=== PATIENT | female | born 1970 | race Caucasian/White ===

== ENCOUNTER 2019-01-26 07:30 | Outpatient (CLI) | payer BC ==
--- NOTE | 2019-01-26 08:33 | CT ---
CT Abdomen Pelvis WO Con History: Abdominal pain. Right lower quadrant abscess Comparison: None. Findings: Lung bases are clear. No pericardial effusion. No nephroureterolithiasis or hydroureteronep hrosis. No secondary evidence of a recently passed stone. No dilated loops of large or small bowel. Within the fascia of the right oblique muscles is a collect ion of fluid measuring 6.5 x 4.3 x 8.9 cm likely correspond to the abscess. No acute osseous abnormality. There is advanced degenerative changes L5/S1. Noncontrast evaluation of the liver, spleen, and pancreas are unremarkable. Reactive right superficia l inguinal lymph nodes. Impression: Incompletely evaluated without intravenous contrast soft tissue mass on the right oblique musculature abutting the anterior right pelvic crest. With a prior history of abscess, this may be reaccumulation of phlegmonous material.
== END 2019-01-26 07:31 | disposition home or self-care (01) ==
LOC: BICCT 07:30
PROVIDERS: ATTEND Nurse Practitioner Family
DX: R10.9 Unspecified abdominal pain (principal); R93.7 Abnormal findings on diagnostic imaging of other parts of musculoskeletal system
CPT/HCPCS: 74176

== ENCOUNTER 2019-02-18 19:07 | Inpatient (IN) | payer BC ==
[~2019-02-18 19:07] MED LIST: ISOVUE-370 76%-LOCM 1 ML ONE
[2019-02-18 20:04] LABS: #Basophils 0.1 thou/uL (0.0-0.2); #Eosinphils 0.2 thou/uL (0.0-0.7); #Lymphocytes 2.8 thou/uL (1.20-3.40); #Neutrophils 8.7 thou/uL (1.40-6.50); %Basophils 0.9 % (0.0-1.0); %Eosinophils 1.6 % (0.0-10.0); %Lymphocytes 21.7 % (21.0-51.0); %Monocytes 7.7 % (0.0-10.0); %Neutrophils 68.2 % (42.0-75.0); Hemoglobin 12.3 g/dL (12.0-16.0); Mean Corpuscular HGB CONC 33.7 g/dL (32.0-36.0); Mean Corpuscular Hemoglobin 30.3 pg (27.0-31.0); Mean Platelet Volume 6.5 fL (7.4-10.4); Platelet Count 385 thou/uL (130-400); Red Blood Cell (RBC) Count 4.04 mill/uL (4.20-5.40); White Blood Cell (WBC) Count 12.7 thou/uL (4.8-10.8)
[2019-02-18 20:14] LABS: BHCG - Serum Negative (NEGATIVE); Pregs Control Background? CLEAR/WHITE (CLR/WHITE); Pregs Control Bar Appear? YES (CONTROL BAR)
[2019-02-18 20:24] LABS: ALT (SGPT) 10 U/L (8-55); AST (SGOT) 18 U/L (5-34); Albumin 4.3 g/dL (3.5-5.0); Alkaline Phosphatase 104 U/L (40-150); Anion Gap 11 mmol/L (10-20); BUN (Urea Nitrogen) 19 mg/dL (7.0-18.7); Bilirubin, Total 0.4 mg/dL (0.2-1.2); Calc. Creatinine Clearance 0 mL/min (70-130); Calcium 9.9 mg/dL (7.8-10.44); Carbon Dioxide 28 mmol/L (22-29); Chloride 101 mmol/L (98-107); Estimated GFR-MDRD 78; Globulin 3.9 g/dL (2.4-3.5); Glucose 89 mg/dL (70-105); Potassium 4.4 mmol/L (3.5-5.1); Protein, Total 8.2 g/dL (6.0-8.3); Sodium 136 mmol/L (136-145)
--- NOTE | 2019-02-18 21:04 | CT ---
EXAM: ABDOMEN CT WITH CONTRAST PELVIC CT WITH CONTRAST 02/18/19 HISTORY: Past medical history of abscess. The patient has been given antibiotics and medication. Abscess has b een drained but continues to recur. COMPARISON: 01/26/19. FINDINGS: ABDOMEN CT: Dependent atelectatic changes. Normal heart size. No significant pericardial fluid. The visualized ao rta has a normal caliber. Unremarkable gallbladder. Portal vein is patent. Liver, spleen, pancreas, and adrenal glands have placido ropriate attenuation and enhancement. No gastrohepatic, retrocrural, or periportal lymphadenopathy. Symmetric enhancement of the kidneys. Bilaterally, no obstructive uropathy. No mesenteric mass, lymphadenopathy, free air or free fluid. Limited evaluation of the alimentary canal by the lack of oral contrast. No evidence of bowel obstruc tion. Ileocecal junction is unremarkable. Appendix is suggested in the right lower quadrant and hill l in caliber. Fecal material in a nondistended, nondilated colon. CT PELVIS: Uterus is unremarkable. Hypodensity in the left adnexa measuring 2.8 x 2.6 cm with attenuation coeffi cient of 20 Hounsfield units suggesting a complex left ovarian cyst. Right adnexa is unremarkable. In the right hemipelvis, there appears to be a tubular structure that is fluid filled with a layering h yperdensity. This may represent a segment of bowel. However, a contained infected fluid collection ca nnot be entirely excluded. Better interrogation with a repeat CT with oral and IV contrast is recomme nded. This areas of dilatation and hyperdensity is not appreciated on the previous CT. Urinary bladder is unremarkable. No pelvic mass, lymphadenopathy, free air or free fluid. Mildly enla rged right inguinal lymph node, likely reactive measuring 1.9 x 0.9 cm. There is induration of the anterior right lower quadrant subcutaneous fat, extending into the right i nguinal region. There is a complex, multiloculated hypodense lesion with peripheral enhancement. This lesion measures 8.2 cm mediolateral x 2 cm anterior posterior x 7.8 cm craniocaudal. This collection has increased in size when compared to the previous examination. There are no lytic or blastic lesions in the osseous structures. IMPRESSION: 1. Redemonstration of an infected fluid collection in the anterior right subcutaneous fat/pelvic subcutaneous fat. This abscess appears to be external to the peritoneal cavity. Abscess has increase d when compared to the previous exam. 2. Reactive right inguinal lymph nodes. 3. Left ovarian cyst, complex. 4. Mixed attenuation collection in the right lower quadrant with a layering hyperdensity which m ay represent contrast or calcification. Etiology is uncertain. Focal dilatation of bowel loops versus an inflammatory collection are differential considerations. Better interrogation with a repeat CT wi th IV and oral contrast is recommended. POS: [facility]
[2019-02-18] MEDS ORDERED: Piperacillin/Tazobactam 3.375 GM VIAL ONE (21:33)
[2019-02-18] MEDS ORDERED: Vancomycin HCl 1 GM in Premix Bag 1 BAG IVPB SCH (23:00)
[2019-02-18] MEDS: Dextrose 5 % And 0.9 % NaCl 1,000 ML IV SCH (23:29)
[2019-02-18] MEDS: Acetaminophen/Codeine 30-300mg Tablet PO PRN (23:37)
[2019-02-19 00:42] VITALS: BMI 25.3
[2019-02-19] MEDS: Piperacillin/Tazobactam 3.375 GM in Sodium Chloride 0.9% 100 ML IVPB SCH ×3 (02:58→23:21)
[2019-02-19 07:43] LABS: INR-International Normal Ratio 1.1; Prothrombin Time 13.8 SEC (12.0-14.7)
[2019-02-19 07:44] LABS: PTT 41.3 SEC (22.9-36.1)
[2019-02-19] MEDS: Dextrose 5 % And 0.9 % NaCl 1,000 ML IV SCH (09:34)
[2019-02-19] MEDS: Acetaminophen/Codeine 30-300mg Tablet PO PRN ×2 (12:34→18:23)
[2019-02-19] MEDS ORDERED: Sodium Bicarbonate 2.5 MEQ/5 ML VIAL ONE (16:00)
[2019-02-19] MEDS ORDERED: Midazolam HCl 2 mg/2 ml Vial ONE (16:00)
[2019-02-19] MEDS ORDERED: Fentanyl 100 MCG/2 ML VIAL ONE (16:00)
--- NOTE | 2019-02-19 17:14 | CT ---
PROCEDURE: CT guided drainage of abscess collection anterior abdominal wall right lower quadrant. INDICATIONS: Fluid dense collection in the anterior abdominal wall right lower quadrant just anterior and superior to the iliac crest has been previously described on CT. CT drainage is requested. FINDINGS: A 6 Telugu all-purpose drainage catheter was placed into this fluid collection under CT guidance. The pigtail is positioned within the mid portion of this fluid collection. 38 mL of purulent fluid is as pirated. A sample is sent to the laboratory for culture and sensitivities. Postprocedure CT showed ad equate position of the pigtail catheter within the collection. PROCEDURE NOTE: CT was performed. Entry site was identified lateral right lower quadrant. overlying skin was prepped and draped in the sterile manner. Local anesthesia was administered with lidocaine and bicarb. Small skin incision made with scalpel. An all-purpose 6 Telugu drainage catheter with trocar in place was i ntroduced into this collection under CT guidance. Pigtail was positioned within the mid portion of th e fluid collection. The trocar was removed and pigtail was formed. A syringe is attached. 38 mL of pu rulent fluid is aspirated. The catheter is flushed with 10 mL of sterile saline which is then aspirat ed. Catheter is secured into place with sutures and a sterile dressing. The catheter is attached to g ravity drainage. Instruction is given to flush and aspirate the tube every six hours to maintain evans ncy. Patient tolerated the procedure well with no problems or complications. POS: [facility]
[2019-02-19] MEDS ORDERED: Acetaminophen/Codeine 30-300mg Tablet PO PRN (18:18)
[2019-02-19 18:29] LABS: RBC Count-Automated (BF) 64113 /cumm; WBC/Nucleated-Auto (BF) 30454 uL
[2019-02-19 18:30] LABS: BF Color Yellow; Body Fluid Source Abscess Fluid; Clarity Cloudy/Turbid (Clear); Tube # EDTA
[2019-02-19 18:34] LABS: BF Segmented Neutrophils 96 %; Lymphocytes 4 %
[2019-02-19] MEDS: Vancomycin HCl 1 GM in Premix Bag 1 BAG IVPB SCH (20:11)
--- NOTE | 2019-02-20 01:32 | HP ---
CHIEF COMPLAINT: Abdominal pain. HISTORY OF PRESENT ILLNESS: Ms. Huff is a 48-year-old woman with a history of multiple abdominal wall abscesses over the past 2 months. She denies any injury or wound to her abdominal area. She states that she developed pain, redness and swelling in the right lower quadrant and went to her local ER 2 months ago. She was found to have an abscess just above the anterior rectus sheath on the right, which underwent incision and drainage and then resolved and healed. At the time of her initial evaluation, she had a CT which also showed some possible fluid density in the oblique muscles, but this was not drained or opened at that time. She was treated with antibiotics, but developed worsening swelling in the right lower quadrant and underwent incision and drainage at the surgical clinic at [facility] in [place]. She states that they made a small incision overlying her old appendectomy scar and went down as far as the muscle and found that the abscess was deep to this. At that point, they decided to aspirate it rather than open it. I vianey off a fair amount of fluid and then placed her on antibiotics. She continued to have some pain and swelling, so she had a 2nd CT at [facility] last month. At that point, she was found to have a small abscess in the right lower quadrant extending down toward the groin, but it did appear extraperitoneal. No drainage was performed at that time, but she was treated with antibiotics IV and then sent home on oral antibiotics. She has been on clindamycin for some time now, but noticed that she was having increasing pain, swelling, and redness in her right groin area and right lower abdomen, so she came back to the emergency room and a repeat CT showed that the fluid collection in the right lower quadrant and groin had increased in size. She was admitted for IV antibiotics and planned percutaneous drainage. PAST MEDICAL HISTORY: None. PAST SURGICAL HISTORY: Appendectomy, tubal ligation and 3 C-sections. SOCIAL HISTORY: The patient does not smoke, drink, or use illicit drugs. She is here with her who is supportive. ALLERGIES: SHE REPORTS AN ALLERGY TO [facility] AND IS ONLY TAKING CLINDAMYCIN CURRENTLY. REVIEW OF SYSTEMS: Ten system review of systems is negative except per HPI. She denies any fevers or chills or changes in her bowel habits. PHYSICAL EXAMINATION: VITAL SIGNS: The patient was afebrile with normal vital signs. GENERAL: Reveals a healthy-appearing woman, in no acute distress. She is not flushed or toxic in appearance. She is not jaundiced or icteric. HEENT: Unremarkable. NECK: Supple without lymphadenopathy or thyroid nodules. HEART: Regular in its rate and rhythm without murmurs, rubs, or gallops. LUNGS: Clear to auscultation bilaterally. ABDOMEN: Soft and nondistended. She has firmness and tenderness over the right lower quadrant especially anterior to the anterior superior iliac spine and extending down toward the groin. No fluctuance. Minimal erythema. EXTREMITIES: Warm and well perfused without edema. NEUROLOGIC: No focal deficits. PSYCHIATRIC: Alert, oriented and appropriate. IMAGING: CT images were reviewed and I agree with the written report. The patient has a fluid collection, which appears to be mostly in the subcutaneous tissues in the right lower quadrant and groin. I do not see any connection to intraabdominal organs. She does have a complex left ovarian cyst and a tubular structure that may be bowel although a dilated fallopian tube cannot be entirely excluded. ASSESSMENT: Abdominal wall abscess, deep partially submuscular and has failed surgical drainage. I am going to ask Interventional Radiology to place a percutaneous drain, which could be left in for some period of time. I think she likely has a very indolent infection, which has been partially suppressed by the clindamycin, but I will add Zosyn for better gram-negative coverage. We will await culture results to further guide therapy, but she can likely be discharged home on empiric clindamycin, levofloxacin once she is comfortable with drain management. She is to follow up in the clinic in about a week and we will plan on repeat CT scanning before removing the drain. If at any point, she deteriorates and starts to have worsening pain, fever, redness or drainage then she should return immediately for re-evaluation. Job ID: [id number]
[2019-02-20] MEDS: Acetaminophen/Codeine 30-300mg Tablet PO PRN ×3 (04:11→20:02)
[2019-02-20] MEDS: Piperacillin/Tazobactam 3.375 GM in Sodium Chloride 0.9% 100 ML IVPB SCH ×4 (05:29→23:01)
[2019-02-20] MEDS: Saccharomyces boulardii 250 MG CAP PO SCH (09:20)
--- NOTE | 2019-02-20 14:13 | PRG ---
DATE OF SERVICE: 02/20/2019 SUBJECTIVE: The patient says she feels pretty good. No pain. No nausea or vomiting. She is tolerating a regular diet. OBJECTIVE: VITAL SIGNS: Temperature is 98.1, pulse 71, blood pressure 109/64. GENERAL: She looks good. She has had 30 mL out the percutaneous drain. LABORATORY DATA: Her white count was elevated 12.7 two days ago. ASSESSMENT: Abdominal wall fluid collection, not growing anything on cultures. PLAN: Continue antibiotics. Repeat CBC. Job ID: [id number]
[2019-02-20] MEDS: Vancomycin HCl 1 GM in Premix Bag 1 BAG IVPB SCH (19:57)
[2019-02-21 05:19] LABS: #Basophils 0.1 thou/uL (0.0-0.2); #Eosinphils 0.3 thou/uL (0.0-0.7); #Lymphocytes 2.7 thou/uL (1.20-3.40); #Monocytes 0.9 thou/uL (0.11-0.59); #Neutrophils 6.4 thou/uL (1.40-6.50); %Basophils 0.8 % (0.0-1.0); %Eosinophils 3.1 % (0.0-10.0); %Lymphocytes 25.6 % (21.0-51.0); %Monocytes 8.7 % (0.0-10.0); %Neutrophils 61.9 % (42.0-75.0); Hemoglobin 11.7 g/dL (12.0-16.0); Mean Corpuscular HGB CONC 34.1 g/dL (32.0-36.0); Mean Corpuscular Hemoglobin 30.7 pg (27.0-31.0); Mean Platelet Volume 6.5 fL (7.4-10.4); Platelet Count 377 thou/uL (130-400); Red Blood Cell (RBC) Count 3.81 mill/uL (4.20-5.40); White Blood Cell (WBC) Count 10.4 thou/uL (4.8-10.8)
[2019-02-21] MEDS: Piperacillin/Tazobactam 3.375 GM in Sodium Chloride 0.9% 100 ML IVPB SCH ×2 (05:31→12:10)
[2019-02-21] MEDS: Acetaminophen/Codeine 30-300mg Tablet PO PRN ×2 (05:35→12:12)
[2019-02-21] MEDS: Saccharomyces boulardii 250 MG CAP PO SCH (08:48)
[2019-02-21 15:18] VITALS: BP 112/62; TEMP 98.3
--- NOTE | 2019-02-22 10:56 | DIS ---
DATE OF ADMISSION: 02/18/2019 DATE OF DISCHARGE: 02/21/2019 DISCHARGE DIAGNOSIS: Recurrent abdominal wall abscess. PROCEDURE DURING ADMISSION: Percutaneous drainage. HOSPITAL COURSE: The patient was admitted. She underwent percutaneous drainage in the Radiology Suite. Cultures never grew anything out, although she seemed to respond to vancomycin and Zosyn. She now has less than 30 mL per 24 hours out. The lesion is much smaller. Her white count is down to normal. She is discharged home on clindamycin and doxycycline as well as [place]. She and her feel comfortable flushing the drain. We are going to continue drain care. She will be discharged home and will follow up with Dr. Jacome in 3 days. Job ID: [id number]
== END 2019-02-21 15:20 | disposition home or self-care (01) | DRG 603 ==
LOC: ERS 19:07 → SURG A 21:32
PROVIDERS: ADMIT Surgery; ATTEND Surgery
PROC: 0W9F3ZZ Drainage of Abdominal Wall, Percutaneous Approach (ICD-10-PCS; principal; 2019-02-21)
DX: L02.211 Cutaneous abscess of abdominal wall (principal); Z98.51 Tubal ligation status; Z90.49 Acquired absence of other specified parts of digestive tract; Z88.1 Allergy status to other antibiotic agents; Z88.2 Allergy status to sulfonamides
CPT/HCPCS: 36415; 49020; 74177; 77002; 80053; 84703; 85025; 85060; 85610; 85730; 87070; 87205; 89051; 96365; C1729; J2250; J2543; J3010; J3370; J3490; Q9966

== ENCOUNTER 2019-03-01 13:26 | Outpatient (CLI) | payer BC ==
--- NOTE | 2019-03-01 14:25 | CT ---
CT ABDOMEN AND PELVIS WITH CONTRAST: HISTORY: Abscess. COMPARISON: CT 02/18/2019. FINDINGS: The lung bases are clear. No pericardial effusion. The percutaneous drainage catheter rests at the craniad aspect of the collection which is markedly de creased in size. There continues to be small volume fluid and gas within the abscess along the right oblique muscle fascia. The spleen, liver, gallbladder, and pancreas are unremarkable. The aortoiliac contour is normal. No reactive intraperitoneal fluid. Moderate degenerative disk space disease at L5-S1. IMPRESSION: Size decreased gas and fluid containing collection along the right anterior abdominal wall at the obl ique fascia. POS: [facility]
== END 2019-03-01 13:27 | disposition home or self-care (01) ==
LOC: BICCT 13:26
PROVIDERS: ATTEND Surgery
DX: L02.211 Cutaneous abscess of abdominal wall (principal); R93.3 Abnormal findings on diagnostic imaging of other parts of digestive tract
CPT/HCPCS: 74177; Q9966

== ENCOUNTER 2019-04-13 09:33 | Inpatient (IN) | payer BC ==
[2019-04-13 10:21] LABS: #Basophils 0.1 thou/uL (0.0-0.2); #Eosinphils 0.2 thou/uL (0.0-0.7); #Lymphocytes 2.8 thou/uL (1.20-3.40); #Monocytes 0.7 thou/uL (0.11-0.59); #Neutrophils 4.6 thou/uL (1.40-6.50); %Eosinophils 2.6 % (0.0-10.0); %Lymphocytes 33.5 % (21.0-51.0); %Monocytes 8.1 % (0.0-10.0); %Neutrophils 54.8 % (42.0-75.0); Hemoglobin 14.4 g/dL (12.0-16.0); Mean Corpuscular HGB CONC 33.7 g/dL (32.0-36.0); Mean Corpuscular Hemoglobin 29.6 pg (27.0-31.0); Mean Corpuscular Volume 87.8 fL (78.0-98.0); Mean Platelet Volume 6.5 fL (7.4-10.4); Platelet Count 335 thou/uL (130-400); RBC Distribution Width 13.4 % (11.5-14.5); Red Blood Cell (RBC) Count 4.87 mill/uL (4.20-5.40); White Blood Cell (WBC) Count 8.4 thou/uL (4.8-10.8)
[2019-04-13 10:34] LABS: Pregnancy Test - Urine (BHCG) Negative (Negative); Pregu Control Background? CLEAR/WHITE (CLR/WHITE); Pregu Control Bar Appear? YES (CONTROL BAR); Specific Gravity 1.007 (1.002-1.036)
[2019-04-13 10:40] LABS: Bilirubin Negative (Negative); Blood, Urine Negative (Negative); Clarity Clear (Clear); Glucose, Urine (Dipstick) Normal (Negative); Leukocyte Negative Leu/uL (Negative); Nitrite Negative (Negative); Protein, Urine (Dipstick) Negative (Neg-Trace); Urobilinogen Normal mg/dL (Less than 2)
[2019-04-13 10:55] LABS: ALT (SGPT) 12 U/L (8-55); AST (SGOT) 19 U/L (5-34); Albumin 4.8 g/dL (3.5-5.0); Alkaline Phosphatase 125 U/L (40-110); Anion Gap 14 mmol/L (10-20); BUN (Urea Nitrogen) 12 mg/dL (7.0-18.7); Bilirubin, Total 0.6 mg/dL (0.2-1.2); Calc. Creatinine Clearance 0 mL/min (70-130); Calcium 10.2 mg/dL (7.8-10.44); Carbon Dioxide 27 mmol/L (22-29); Chloride 102 mmol/L (98-107); Estimated GFR-MDRD 77; Globulin 3.6 g/dL (2.4-3.5); Glucose 79 mg/dL (70-105); Lipase 23 U/L (8-78); Potassium 3.8 mmol/L (3.5-5.1); Protein, Total 8.4 g/dL (6.0-8.3); Sodium 139 mmol/L (136-145)
[2019-04-13] MEDS ORDERED: ISOVUE-370 76%-LOCM 1 ML ONE (12:00)
[2019-04-13] MEDS ORDERED: Iopamidol 370 76% 50 ML VIAL FS ONE (12:00)
--- NOTE | 2019-04-13 12:47 | CT ---
CT Abdomen Pelvis W Con HISTORY: Right lower quadrant pain. Patient has had an abscess that is been previously drained but sy mptoms have gotten worse over the past week. COMPARISON: 03/01/2019 CT examination. FINDINGS: The lung bases are clear of any infiltrative process. The liver, spleen, pancreas and gallbladder regions all appear unremarkable. Right and left adrenal glands and right and left kidneys are normal no free fluid seen within the abd omen. No significant periaortic or mesenteric adenopathy. CT of pelvis performed with contrast enhancement: There is no evidence of adenopathy, mass or free fl uid. There has been reaccumulation of the fluid collection seen along the right lateral wall oblique muscu lature. The fluid density collection extends into the region of the right rectus muscle is somewhat crescentic in shape measuring approximately 19 mm in thickness. IMPRESSION: Reaccumulation of the right-sided superficial fluid collection as discussed above.
[2019-04-13] MEDS ORDERED: Dexamethasone 20 MG/5 ML VIAL ONE (13:15)
[2019-04-13] MEDS ORDERED: Ondansetron PF 4 MG/2 ML Vial ONE (13:15)
[2019-04-13] MEDS ORDERED: PROPOFOL 200 MG/20 ML VIAL ONE (13:15)
[2019-04-13] MEDS ORDERED: Lidocaine 1% PF 5 ML VIAL ONE (13:15)
[2019-04-13] MEDS ORDERED: Cefepime 2 GM VIAL ONE (13:16)
[2019-04-13] MEDS ORDERED: Morphine 4 MG/ML VIAL ONE (16:19)
[2019-04-13] MEDS ORDERED: Famotidine/PF 20 mg/2ml Vial ONE (18:08)
[2019-04-13] MEDS ORDERED: Bupivacaine HCl 0.25%/Epi 0.0005/PF 10 ML VIAL FS ONE ×2 (19:11)
[2019-04-13] MEDS ORDERED: Fentanyl 100 MCG/2 ML VIAL ONE ×2 (20:00→21:31)
[2019-04-13] MEDS ORDERED: Promethazine HCl 25 MG/ML VIAL SLOW IVP PRN (21:21)
[2019-04-13] MEDS ORDERED: Ondansetron HCl/PF 4 MG/2 ML Vial IVP PRN (21:21)
[2019-04-13] MEDS ORDERED: PACU-Morphine 4MG/ML VIAL SLOW IVP PRN (21:21)
[2019-04-13] MEDS ORDERED: Promethazine HCl 25 MG/ML VIAL IM PRN (21:21)
[2019-04-13] MEDS ORDERED: Ketorolac Tromethamine 30 MG/ML VIAL IVP PRN (21:21)
[2019-04-13] MEDS ORDERED: HYDROmorphone 2 MG/ML VIAL SLOW IVP PRN (21:21)
[2019-04-13] MEDS ORDERED: Morphine Sulfate 2 MG/ML SYRINGE SLOW IVP PRN (21:21)
[2019-04-13] MEDS ORDERED: Ibuprofen 200 MG TAB PO PRN ×2 (22:19→22:33)
[2019-04-13] MEDS ORDERED: Acetaminophen 325 MG TAB PO PRN ×2 (22:20→22:35)
[2019-04-13] MEDS ORDERED: HYDROcodone/Acetaminophen 5/325 mg Tablet PO PRN (22:20)
[2019-04-13] MEDS ORDERED: Morphine 2 MG/ML SYRINGE SLOW IVP PRN (22:23)
[2019-04-13 22:32] VITALS: BMI 25.4
[2019-04-13] MEDS: HYDROcodone/Acetaminophen 5/325 mg Tablet PO PRN (22:56)
[2019-04-13] MEDS: Ibuprofen 200 MG TAB PO PRN (22:56)
[2019-04-14] MEDS: Cefepime 2 GM in Sodium Chloride 0.9% 100 ML IVPB SCH ×2 (00:26→12:20)
[2019-04-14] MEDS: Vancomycin HCl 1.25 GM in Sodium Chloride 0.9% 250 ML 250 ML IVPB SCH ×2 (03:52→15:10)
[2019-04-14] MEDS: Sodium Chloride 0.9% 1,000 ML IV SCH ×3 (03:53→20:05)
[2019-04-14] MEDS: HYDROcodone/Acetaminophen 5/325 mg Tablet PO PRN ×4 (03:54→21:34)
[2019-04-14] MEDS ORDERED: Lidocaine 4% Topical Sol 50 ML BOT TOP PRN (09:25)
[2019-04-14] MEDS: Morphine 4 MG/ML VIAL SLOW IVP PRN (13:41)
[2019-04-14] MEDS: Ibuprofen 200 MG TAB PO PRN (17:24)
[2019-04-14] MEDS ORDERED: FLU VACC QS2019-20(6MOS UP)/PF 60 MCG/0.5 ML SYRINGE IM ONE (21:00)
--- NOTE | 2019-04-14 22:45 | PDOC.GSPN ---
Surgery Progress Note: Subj - Subjective Narrative: Patient seen with wound care team today. The patient states that her pain is tolerable with pain medication. She is otherwise doing well. The packing was removed and the cavity appeared clean. Cultures and pathology are still pending. 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 The wound appeared clean. A VAC dressing was placed. Home VAC has been ordered. Surgery Progress Note: Obj - Vital signs Vital signs: Vital Signs - Most Recent Temp Pulse Resp BP Pulse Ox 98.0 F 84 18 100/62 96 04/14/19 20:26 04/14/19 20:26 04/14/19 20:26 04/14/19 20:26 04/14/19 20:26 Surgery Progress Note: Results - Labs Result Diagrams: 04/13/19 10:05 04/13/19 10:05
--- NOTE | 2019-04-14 23:07 | PDOC.OP ---
Operative Note - Operative Note Operative Note: PROCEDURE: Incision and debridement of chronic seroma cavity SURGEON: Esperanza Jacome M.D. DATE: 04/13/2019 PREOPERATIVE DIAGNOSIS: Chronic seroma cavity POSTOPERATIVE DIAGNOSIS: Chronic seroma cavity HISTORY: Patient is otherwise healthy woman with a multiply recurrent seroma in the right lower quadrant near her appendectomy incision from many years ago. This has undergone percutaneous drainage as well as aspiration but has continued to recur. Open drainage and debridement in the operating room was recommended. PROCEDURE IN DETAIL: After informed consent was obtained and appropriate preoperative antibiotics administered the patient was taken to the operating room she was placed in supine position and general anesthesia by LMA was administered. She was prepped and draped in standard sterile fashion and a sterile ultrasound probe used to identify the most superficial portion of the seroma. An incision was made excising some eroded skin in the area and the seroma cavity was entered. Clear fluid was drained and a swab was sent for Gram stain and culture. The cavity was quite large extending up to her old appendectomy incision and laterally toward the midline and was lined with a thick gelatinous material. There was no odor or purulence. The gelatinous material was carefully debrided using a combination of blunt dissection and curettage. Given the patient's history of appendectomy, the decision was made to send this material for histopathology, although the patient had no history of appendiceal malignancy. Once the entire cavity was stripped of this gelatinous lining, the surface was further mechanically debrided with sponges, and Bovie electrocautery used to ensure hemostasis. Due to the possibility of chronic colonization, as well as the multiply recurrent nature of the seroma, the decision was made to pack the wound with gauze and to consult the wound care team in the morning for placement of a VAC dressing. Once the wound was packed, a gauze and ABD dressing was placed and the patient was extubated and taken to recovery in good condition. Estimated blood loss was minimal. There were no complications. Specimen is seroma lining for histopathology and seroma fluid for Gram stain and culture.
[2019-04-15] MEDS: HYDROcodone/Acetaminophen 5/325 mg Tablet PO PRN ×6 (01:30→23:58)
[2019-04-15] MEDS: Cefepime 2 GM in Sodium Chloride 0.9% 100 ML IVPB SCH ×2 (01:31→13:50)
[2019-04-15 02:23] LABS: Vancomycin, Trough 10.8 ug/mL
[2019-04-15] MEDS ORDERED: Vancomycin HCl 1.5 GM in Sodium Chloride 0.9% 250 ML 300 ML IVPB SCH (03:00)
[2019-04-15] MEDS: Vancomycin 1.5 GRAM/300 ML BAG 1.5 GM in Premix Bag 1 BAG IVPB SCH ×2 (03:20→15:51)
[2019-04-15] MEDS: Sodium Chloride 0.9% 1,000 ML IV SCH ×2 (05:51→15:51)
[2019-04-15] MEDS: Ibuprofen 200 MG TAB PO PRN ×2 (07:24→15:53)
--- NOTE | 2019-04-15 17:23 | PDOC.GSPN ---
Surgery Progress Note: Subj - Subjective Narrative: Feeling fine. No real pain since dressing change. No fevers or chills. Cultures to date. Pathology pending. VAC is in place and wound looks good. Assessment/plan: Status post debridement of chronic seroma cavity. Awaiting home VAC approval. Will see with wound care team tomorrow. Surgery Progress Note: Obj - Vital signs Vital signs: Vital Signs - Most Recent Temp Pulse Resp BP Pulse Ox 98.1 F 69 16 105/72 97 04/15/19 11:16 04/15/19 11:16 04/15/19 11:16 04/15/19 11:16 04/15/19 11:16 Surgery Progress Note: Results - Labs Result Diagrams: 04/13/19 10:05 04/13/19 10:05
[2019-04-16] MEDS: Sodium Chloride 0.9% 1,000 ML IV SCH (00:56)
[2019-04-16] MEDS: Cefepime 2 GM in Sodium Chloride 0.9% 100 ML IVPB SCH (00:57)
[2019-04-16] MEDS: Vancomycin 1.5 GRAM/300 ML BAG 1.5 GM in Premix Bag 1 BAG IVPB SCH (03:39)
[2019-04-16 03:55] VITALS: TEMP 97.8
[2019-04-16] MEDS: HYDROcodone/Acetaminophen 5/325 mg Tablet PO PRN (05:31)
[2019-04-16 07:28] VITALS: BP 96/66
[2019-04-16] MEDS: Morphine 4 MG/ML VIAL SLOW IVP PRN (09:18)
--- NOTE | 2019-04-19 08:17 | PQF ---
HADLEY Roblero KIMIYE MD [id number] [place] [id number] CLINICAL DOCUMENTATION CLARIFICATION FORM: POST DISCHARGE Addendum to original discharge summary date: ____ Late entry note date: __ DATE: 04/19/2019 ATTN: RAMONITA HANNAH MD Please exercise your independent, professional judgment in responding to the clarification form. Clinical indicators are provided on the bottom of this form for your review Please check appropriate box(s): [ ] Excisional Debridement: [ ] Excised [ ] Cut away [ ] Other: Depth / layer: (deepest layer of debridement): [ ] Skin[ ] SubQ Tissue [ ] Fascia [ ] Muscle [ ] Tendon [ ] Bone Appearance of wound: (e.g., down to fresh bleeding tissue, etc.)___ Margins: (please specify): / x x Instruments used: [ ] Scissors [ ] Scalpel [ ] Curette [ ] Soft tissue clipper [ ] Other: [ ] Non-excisional Debridement: (Removal by flushing, brushing, chemical, or washing) Depth / layer: (deepest layer of debridement): [ ] Skin[ ] Subcutaneous [ ] Fascia [ ] Muscle [ ] Tendon [ ] Bone [ ] Incision and Drainage only (No Debridement): Depth:[ ] Skin [ ] Subcutaneous [ ] Fascia [ ] Muscle [ ] Tendon [ ] Bone [ ] Escharectomy [ ] Other procedure diagnosis [ ] Unable to determine For continuity of documentation, please document condition throughout progress notes and discharge summary. Thank You. CLINICAL INDICATORS - SIGNS / SYMPTOMS / LABS - Incision was made excising some eroded skin in the area and the seroma cavity was entered- OP report, 04/13, RAMONITA HANNAH MD - Clear fluid was drained and a swab was sent for gram stain and culture-OP report, 04/13, RAMONITA HANNAH MD - The cavity was quite large extending up to her old appendectomy -OP report, , RAMONITA HANNAH MD - once the entire cavity was stripped of this gelatinous lining, the surface was further mechanically debrided with sponges-OP report, 04/13, RAMONITA HANNAH MD RISK FACTORS - Chronic seroma cavity-OP report, 04/13, RAMONITA HANNAH MD - Incision and debridement of chronic seroma cavity-OP report, 04/13, RAMONITA HANNAH MD - appendectomy incision from many years ago-OP report, 04/13, RAMONITA HANNAH MD TREATMENTS: -Consult with Wound care-OP report, 04/13, RAMONITA HANNAH MD - placement of a VAC dressing-OP report, 04/13, RAMONITA HANNAH MD - abdomen dressing was placed-OP report, 04/13, RAMONITA HANNAH MD (This form is maintained as a part of the permanent medical record) 2014 [employer]. All Rights Reserved [employer] [not provided] [not provided] YVOND
--- NOTE | 2019-04-19 08:39 | PQF ---
HADLEY SILVA KIMIYE MD [id number] [facility] A- [id number] CLINICAL DOCUMENTATION CLARIFICATION FORM: POST DISCHARGE Addendum to original discharge summary date: ____ Late entry note date: __ DATE: 04/19/2019 ATTN: RAMONITA HANNAH MD Please exercise your independent, professional judgment in responding to the clarification form. Clinical indicators are provided on the bottom of this form for your review Please check appropriate box(s) to clarify if the following diagnosis has been ruled in or ruled out: Right lower abdominal abscess [ ] Ruled in diagnosis [ ] Continue to treat [ ] Resolved [ ] Ruled out diagnosis [ ] Cannot rule out diagnosis [ ] Other diagnosis [ ] Unable to determine For continuity of documentation, please document condition throughout progress notes and discharge summary. Thank You. CLINICAL INDICATORS - SIGNS / SYMPTOMS / LABS - Right lower abdominal abscess-ED Record, 04/13, Tonio Sprague MD - Temp:98.2-ED Record, 04/13, Tonio Sprague MD - WBC: 8.4-Laboratory 03/13 RISK FACTORS -Chronic seroma cavity- General surgery PN, 04/15, RAMONITA HANNAH MD - Seroma complicating a procedure-H and P report, 04/07 TREATMENTS -Incision and debridement-OP report, 04/13, RAMONITA HANNAH MD -Vancomycin.IV-MAR, 04/13 (This form is maintained as a part of the permanent medical record) 2014 [employer]. All Rights Reserved [employer] [not provided] [not provided] MTDD
[2019-04-19 10:10] LABS: Fungus Stain Final report (.)
[2019-04-19 10:10] LABS: Fungus Stain Final report (.)
--- NOTE | 2019-04-19 12:55 | DIS ---
DATE OF ADMISSION: 04/13/2019 DATE OF DISCHARGE: 04/16/2019 FINAL DIAGNOSIS: Multiple recurrent right lower quadrant seroma. PROCEDURES: Drainage and debridement of chronic seroma of the right lower quadrant abdominal wall on 04/13/2019. HOSPITAL COURSE: Ms. Huff is a 48-year-old woman, who underwent an open appendectomy many years ago. Recently, she developed pain and swelling in the right lower quadrant, was found to have a seroma. This was drained and aspirated at an outside facility, but continues to recur. A percutaneous drain was placed at our facility, but the seroma recurred and became painful. She came to the emergency room and was taken to the operating room for open drainage and debridement of the seroma cavity. The cavity was found to have a chronic inflammatory lining which was debrided and a VAC dressing was placed. Once the VAC dressing was approved, the patient was discharged home with instructions to follow up in the [facility] for outpatient VAC dressing changes. She is given a prescription for pain medication during dressing changes and Wound Care team is going to call me to see her wound in a week or two. Job ID: [id number]
== END 2019-04-16 11:54 | disposition home or self-care (01) | DRG 919 ==
LOC: ERS 09:33 → SDC/OP 19:45 → SURG A 21:29
PROVIDERS: ADMIT Surgery; ATTEND Surgery
PROC: 0HD7XZZ Extraction of Abdomen Skin, External Approach (ICD-10-PCS; principal; 2019-04-13)
DX: L76.34 Postprocedural seroma of skin and subcutaneous tissue following other procedure (principal); K65.1 Peritoneal abscess; T81.49XA Infection following a procedure, other surgical site, initial encounter; Y83.8 Other surgical procedures as the cause of abnormal reaction of the patient, or of later complication, without mention of misadventure at the time of the procedure; Z88.2 Allergy status to sulfonamides; Z90.49 Acquired absence of other specified parts of digestive tract; Z98.51 Tubal ligation status
CPT/HCPCS: 36415; 74177; 80053; 80202; 81003; 81025; 83605; 83690; 85025; 86850; 86900; 86901; 87070; 87076; 87102; 87205; 87206; 88304; 90471; 90686; 94760; 96361; 96365; 96367; 96375; G0008; J0692; J1100; J2001; J2270; J2405; J2704; J3010; J3370; J3490; J7050; Q9966; Q9967; S0028

== ENCOUNTER 2019-04-19 10:58 | Outpatient (CLI) | payer BC ==
[~2019-04-19 10:58] MED LIST changes: -ISOVUE-370 76%-LOCM 1 ML ONE; +Sodium Chloride 0.9% 15 ML NEB ONE
== END 2019-04-19 10:59 | disposition home or self-care (01) ==
LOC: WCC 10:58
PROVIDERS: ATTEND Family Medicine
DX: L02.211 Cutaneous abscess of abdominal wall (principal)
CPT/HCPCS: A4218

== ENCOUNTER 2019-04-22 15:18 | Outpatient (CLI) | payer BC | END 2019-04-22 15:19 | disposition home or self-care (01) | LOC: WCC 15:18 | PROVIDERS: ATTEND Family Medicine | DX: T81.89XD Other complications of procedures, not elsewhere classified, subsequent encounter (principal) | CPT/HCPCS: 97605; A4218 ==

== ENCOUNTER 2019-04-26 11:24 | Outpatient (CLI) | payer BC ==
[2019-04-26] MEDS ORDERED: Lidocaine 2% PF 100 mg/5 ml Syringe ONE (15:00)
[2019-04-26] MEDS ORDERED: Sodium Chloride 0.9% 15 ML NEB ONE (15:00)
--- NOTE | 2019-04-27 00:26 | HP ---
HISTORY OF PRESENT ILLNESS: Ms. Lucinda Huff is a very pleasant 48-year-old, who presents to the [facility] for evaluation of the wound of the right lower quadrant subsequent to incision and debridement of a chronic seroma cavity on 04/13/[address] Esperanza aJcome. The patient's medical history is significant for appendectomy in the 6th grade. 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 Negative pressure therapy was initiated subsequent to surgery and upon discharge from [facility], the patient was referred to the Wound Center for assistance with dressing changes of the wound VAC. PAST MEDICAL HISTORY: Negative for any chronic medical conditions including diabetes mellitus, hypertension, or coronary artery disease. PAST SURGICAL HISTORY: 1. Tonsillectomy. 2. Appendectomy. 3. Tubal ligation. 4. x3. 5. Incision and debridement of a chronic seroma cavity. MEDICATIONS: 1. Multivitamin. 2. Hydrocodone. ALLERGIES: SULFA. SOCIAL HISTORY: Negative for tobacco use. The patient admits to only the occasional consumption of alcohol. FAMILY HISTORY: Significant for coronary artery disease. The patient's father was diagnosed with coronary artery disease. Family history is also significant for diabetes mellitus. The patient states that her grandmother and aunt were both diagnosed with diabetes mellitus. PHYSICAL EXAMINATION: VITAL SIGNS: Temperature 97.9, pulse 77, respirations 16, and blood pressure 125/86. GENERAL: A 48-year-old female, lying on table in examination room, in no acute distress. HEENT: Normocephalic and atraumatic. NECK: No nuchal rigidity. CHEST: Clear to auscultation. CV: Regular rate and rhythm. ABDOMEN: Soft. A wound over the right lower quadrant is present, which measures approximately 6.5 x 1.0 cm. A tunnel is associated with the wound, which is approximately 6.1 cm in length. Granulation tissue is present within the wound margins. No purulent drainage is associated with the wound. No erythema of the skin surrounding the wound is present. No maceration of the skin of the periwound is noted. EXTREMITIES: No clubbing or cyanosis. NEUROLOGIC: Grossly nonfocal. ASSESSMENT AND PLAN: Wound of the right lower quadrant as described above. Negative pressure therapy will be continued with dressing changes of the wound VAC 2 times per week here in the Wound Center. The patient will be seen by Dr. Jacome in 2 weeks. I will see Ms. Huff again in 3 weeks. No antibiotics will be prescribed today based upon the appearance of the wound. The patient understands and is in agreement with the preceding treatment plan. Job ID: [id number]
== END 2019-04-26 11:25 | disposition home or self-care (01) ==
LOC: WCC 11:24
PROVIDERS: ATTEND Family Medicine
DX: T81.89XD Other complications of procedures, not elsewhere classified, subsequent encounter (principal)
CPT/HCPCS: A4218; J2001

== ENCOUNTER 2019-04-28 16:05 | Outpatient (CLI) | payer BC | END 2019-04-28 16:06 | disposition home or self-care (01) | LOC: WCC 16:05 | PROVIDERS: ATTEND Family Medicine | DX: T81.89XD Other complications of procedures, not elsewhere classified, subsequent encounter (principal) | CPT/HCPCS: 97605; A4218 ==

== ENCOUNTER 2019-05-03 15:35 | Outpatient (CLI) | payer BC | END 2019-05-03 15:36 | disposition home or self-care (01) | LOC: WCC 15:35 | PROVIDERS: ATTEND Family Medicine | DX: T81.89XD Other complications of procedures, not elsewhere classified, subsequent encounter (principal) | CPT/HCPCS: 97605 ==

== ENCOUNTER 2019-05-05 08:10 | Outpatient (CLI) | payer BC ==
[2019-05-05] MEDS ORDERED: Sodium Chloride 0.9% 15 ML NEB ONE (15:34)
== END 2019-05-05 08:11 | disposition home or self-care (01) ==
LOC: WCC 08:10
PROVIDERS: ATTEND Family Medicine
DX: T81.89XD Other complications of procedures, not elsewhere classified, subsequent encounter (principal)
CPT/HCPCS: 97605; A4218

== ENCOUNTER 2019-05-10 15:25 | Outpatient (CLI) | payer BC | END 2019-05-10 15:26 | disposition home or self-care (01) | LOC: WCC 15:25 | PROVIDERS: ATTEND Family Medicine | DX: T81.89XD Other complications of procedures, not elsewhere classified, subsequent encounter (principal) ==

== ENCOUNTER 2019-05-13 16:06 | Outpatient (CLI) | payer BC | END 2019-05-13 16:07 | disposition home or self-care (01) | LOC: WCC 16:06 | PROVIDERS: ATTEND Family Medicine | DX: T81.89XD Other complications of procedures, not elsewhere classified, subsequent encounter (principal) ==

== ENCOUNTER 2019-05-17 08:27 | Outpatient (CLI) | payer BC ==
[2019-05-17] MEDS ORDERED: Sodium Chloride 0.9% 15 ML NEB ONE (10:38)
== END 2019-05-17 08:28 | disposition home or self-care (01) ==
LOC: WCC 08:27
PROVIDERS: ATTEND Family Medicine
DX: T81.89XD Other complications of procedures, not elsewhere classified, subsequent encounter (principal)
CPT/HCPCS: 97605; A4218

== ENCOUNTER 2019-05-20 10:05 | Outpatient (CLI) | payer BC ==
--- NOTE | 2019-05-20 09:09 | PRG ---
DATE OF SERVICE: 05/20/2019 HISTORY: Ms. Lucinda Huff is a very pleasant 48-year-old, who presents to the [facility]ound Center for evaluation of a wound of the right lower quadrant subsequent to incision and debridement of a chronic seroma cavity on 04/13/[address] Esperanza Jacome. The patient's medical history significant for appendectomy in the 6th grade. 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 Negative pressure therapy was initiated subsequent to surgery and upon discharge from [facility], the patient was referred to the Wound Center for assistance with dressing changes of the wound VAC. PHYSICAL EXAMINATION: VITAL SIGNS: Temperature 97.7, pulse 68, respirations 18, and blood pressure 116/72. ABDOMEN: Soft. A wound over the right lower quadrant is present, which measures approximately 3.5 x 1.0 cm. A tunnel is associated with the wound, which is approximately 1.5 cm in length. The tunnel associated with the wound at the time of the patient's visit on 04/26/2019 was approximately 6.1 cm in length. Granulation tissue was present within the wound margins. No purulent drainage is associated with the wound. No erythema of the skin surrounding the wound is present. No maceration of the skin of the periwound is noted. ASSESSMENT AND PLAN: Wound of right lower quadrant as described above. Negative pressure therapy will be continued with dressing changes of the wound VAC 2 times per week here in the Wound Center. The patient will be seen by Dr. Jacome today or alternatively next week. If the wound VAC is discontinued by General Surgery, dressing changes of iodoform gauze are to be performed on a daily basis after cleansing and irrigation by the patient herself. The patient will be seen in 1 week either in the Wound Center or by General Surgery and Dr. Jacome's office. Job ID: [id number]
== END 2019-05-20 10:06 | disposition home or self-care (01) ==
LOC: WCC 10:05
PROVIDERS: ATTEND Family Medicine
DX: T81.89XD Other complications of procedures, not elsewhere classified, subsequent encounter (principal)

== ENCOUNTER 2020-03-30 07:46 | Outpatient (CLI) | payer BC ==
--- NOTE | 2020-03-30 08:00 | RAD ---
Chest 2 views HISTORY: Cough. FINDINGS: Left cardiac margin partially obscured by focal infiltrate within the superior lingular seg ment of the left upper lobe. Pulmonary vasculature is unremarkable. Mediastinum is midline. No pleural fluid or pneumothorax. Right lung is clear. IMPRESSION : Pneumonia left upper lobe lingula.
== END 2020-03-30 07:47 | disposition home or self-care (01) ==
LOC: RAD-FRANK 07:46
PROVIDERS: ATTEND Nurse Practitioner Family
DX: R05 Cough (principal); J18.9 Pneumonia, unspecified organism
CPT/HCPCS: 71046